=== PATIENT | female | born 2000 | race African-American/Black ===

== ENCOUNTER 2023-01-08 20:56 | Emergency (ER) | payer OTHER ==
[~2023-01-08] VITALS: Ht 152.4 cm; Wt 51.7 kg
[2023-01-08 21:15] VITALS: BP 120/63; PULSE 106; RESP 18; TEMP 97.7; O2SAT 100
[2023-01-08] MEDS ORDERED: IBUPROFEN 600 MG TAB PO ONE (23:15)
[2023-01-08] MEDS ORDERED: NAPR-54 PO (23:29)
[2023-01-08 23:40] VITALS: BP 120/63; PULSE 106; RESP 18; TEMP 97.7; O2SAT 100
== END 2023-01-08 23:40 | disposition home or self-care (01) ==
LOC: MED 20:56
DX: S63.501A Unspecified sprain of right wrist, initial encounter (principal); S50.11XA Contusion of right forearm, initial encounter; Z79.1 Long term (current) use of non-steroidal anti-inflammatories (NSAID); Z88.0 Allergy status to penicillin; V89.2XXA Person injured in unspecified motor-vehicle accident, traffic, initial encounter; Y93.89 Activity, other specified; Y92.410 Unspecified street and highway as the place of occurrence of the external cause; Y99.8 Other external cause status
CPT/HCPCS: 73090; 73130; 99284

== ENCOUNTER 2023-05-12 16:00 | Emergency (ER) | payer BC, OTHER ==
[~2023-05-12] VITALS: Ht 152.4 cm; Wt 51.7 kg
[~2023-05-12 16:00] MED LIST: NAPR-54 PO
[2023-05-12 16:08] VITALS: BP 110/80; PULSE 119; RESP 18; TEMP 98.3; O2SAT 98
[2023-05-12] MEDS ORDERED: ONDA-188 SL (16:35)
[2023-05-12] MEDS ORDERED: BEN10 PO (16:35)
== END 2023-05-12 16:45 | disposition home or self-care (01) ==
LOC: MED 16:00
DX: A08.4 Viral intestinal infection, unspecified (principal); Z79.899 Other long term (current) drug therapy; Z88.0 Allergy status to penicillin
CPT/HCPCS: 81002; 81025; 99283